=== PATIENT | female | born 1980 | race Two or more races ===

== ENCOUNTER 2023-10-24 00:03 | Emergency (ER) | payer SELFPAY ==
[~2023-10-24] VITALS: Ht 157.5 cm; Wt 90.0 kg
[2023-10-24] MEDS ORDERED: cloNIDine HCL 0.1 MG TAB PO ONE (01:00)
[2023-10-24] MEDS ORDERED: HYDROcodone-ACET 10/325MG TAB PO ONE (01:00)
[2023-10-24] MEDS ORDERED: AMOX875T4 PO (02:04)
[2023-10-24] MEDS ORDERED: ACE3T PO (02:04)
[2023-10-24] MEDS ORDERED: KETOROLAC TROMETH 60MG/2ML VIAL IM ONE (02:15)
[2023-10-24 02:22] VITALS: BP 155/104
[2023-10-24 03:26] VITALS: PULSE 93; RESP 18; O2SAT 97
== END 2023-10-24 03:30 | disposition home or self-care (01) ==
LOC: ER 00:03
DX: S16.1XXA Strain of muscle, fascia and tendon at neck level, initial encounter (principal); H66.91 Otitis media, unspecified, right ear; I10 Essential (primary) hypertension; F41.9 Anxiety disorder, unspecified; F17.210 Nicotine dependence, cigarettes, uncomplicated; Z98.890 Other specified postprocedural states; Z88.8 Allergy status to other drugs, medicaments and biological substances; Z79.899 Other long term (current) drug therapy; X50.0XXA Overexertion from strenuous movement or load, initial encounter; Y93.89 Activity, other specified; Y92.89 Other specified places as the place of occurrence of the external cause; Y99.8 Other external cause status
CPT/HCPCS: 70486; 72125; 93005; 96372; 99285; J1885

== ENCOUNTER 2024-08-20 20:46 | Emergency (ER) | payer SELFPAY ==
[~2024-08-20] VITALS: Ht 157.5 cm; Wt 95.0 kg
[~2024-08-20 20:46] MED LIST: ACE3T PO; AMOX875T4 PO
[2024-08-20] MEDS: ONDANSETRON HCL 4 MG/2 ML VIAL IM ONE (21:06)
[2024-08-20] MEDS: MORPHINE SULFATE 4 MG/ML SYR/VIAL IM ONE (21:07)
[2024-08-20 21:59] LABS: Urine Blood 1+ /uL (Negative); Urine Clarity Clear (Clear); Urine Color Colorless (Yellow); Urine Protein, UAD Negative (Negative); Urine Specific Gravity 1.012 (1.001-1.035); Urine Urobilinogen Normal (Negative)
[2024-08-20 23:06] LABS: Basophils # (auto) 0.1 10 ^3/uL (0-0.2); Basophils % (auto) 0.4 % (0.0-2.0); Eosinophils # (auto) 0 10 ^3/uL (0-0.8); Eosinophils % (auto) 0.2 % (0.0-7.0); Hematocrit 47.3 % (36.0-46.0); Hemoglobin 16.2 g/dL (12.2-16.2); Lymphocytes # (auto) 1.3 10 ^3/uL (0.4-5.4); Lymphocytes % (auto) 7.6 % (10.0-50.0); Mean Corpuscular Hemoglobin 30.2 pg (28.0-32.0); Mean Corpuscular Hgb Conc. 34.2 g/dL (32.0-36.0); Mean Corpuscular Volume 88.2 fL (80.0-100.0); Monocytes # (auto) 1.1 10 ^3/uL (0-1.3); Neutrophils # (auto) 15.1 10 ^3/uL (1.6-8.6); Neutrophils % (auto) 85.8 % (37.0-80.0); Platelet Count (auto) 352 10^3/uL (140-450); Red Blood Cells 5.36 10^6/uL (4.0-5.20); Red Cell Distribution Width 13.9 % (11.8-14.3); White Blood Cell 17.7 10^3/uL (4.4-10.8)
[2024-08-20] MEDS: SODIUM CHLORIDE 0.9% 1,000 ML IV ONE (23:11)
[2024-08-20] MEDS: cloNIDine HCL 0.1 MG TAB PO ONE (23:11)
[2024-08-20] MEDS: hydrALAZINE HCL 20 MG/ML VL IV ONE (23:21)
[2024-08-20] MEDS: ONDANSETRON HCL 4 MG/2 ML VIAL IV ONE (23:21)
[2024-08-20 23:23] LABS: Alanine Aminotransferase 44 U/L (7-40); Alkaline Phosphatase 207 U/L (46-116); Anion Gap 12 (5-15); Aspartate Aminotransferase 27 U/L (13-40); BUN/Creatinine Ratio 11.7 (10.0-20.0); Bilirubin, Total 0.8 mg/dL (0.2-1.0); Blood Urea Nitrogen 11 mg/dL (9-23); Calcium 10.2 mg/dL (8.7-10.4); Carbon Dioxide 22 mmol/L (20-31); Chloride 109 mmol/L (98-107); Glucose 149 mg/dL (74-106); Potassium 3.2 mmol/L (3.5-5.1); Sodium 143 mmol/L (136-145); Total Protein 8.3 g/dL (5.7-8.2)
[2024-08-21] MEDS ORDERED: CEPH250C PO (00:11)
[2024-08-21] MEDS ORDERED: IBU600T PO (00:11)
[2024-08-21] MEDS ORDERED: TAMS-35 PO (00:11)
[2024-08-21] MEDS: TAMSULOSIN HYDROCHLORIDE 0.4 MG CAP PO ONE (00:19)
[2024-08-21 00:22] VITALS: BP 157/102; PULSE 69; RESP 18; TEMP 97.7; O2SAT 95
[2024-08-21] MEDS: levoFLOXacin 500MG 100 ML IV ONE (00:38)
[2024-08-21] MEDS: levoFLOXacin 500 MG TAB PO ONE (00:40)
== END 2024-08-21 00:47 | disposition home or self-care (01) ==
LOC: ER 20:46
DX: N13.2 Hydronephrosis with renal and ureteral calculous obstruction (principal); Z79.899 Other long term (current) drug therapy; I10 Essential (primary) hypertension; F41.9 Anxiety disorder, unspecified; F17.210 Nicotine dependence, cigarettes, uncomplicated; Z90.49 Acquired absence of other specified parts of digestive tract; Z88.8 Allergy status to other drugs, medicaments and biological substances
CPT/HCPCS: 36415; 70450; 74176; 80053; 81003; 85025; 93005; 96372; 96374; 96375; 99285; J0360; J2270; J2405